=== PATIENT | female | born 1970 | race Caucasian/White ===

== ENCOUNTER 2020-11-21 20:36 | Inpatient (IN) | payer BC, MEDICAID ==
[~2020-11-21] VITALS: Ht 157.5 cm; Wt 54.8 kg
[2020-11-21 21:28] LABS: ALANINE AMINOTRANSFERASE 31 U/L (12-78); ALBUMIN 4.3 g/dL (3.4-5.0); ANION GAP 4 mmol/L (5-15); CALCIUM 8.9 mg/dL (8.5-10.1); CHLORIDE 112 mmol/L (98-107); CREATININE 1.24 mg/dL (0.55-1.02)
[2020-11-21 21:32] LABS: ALKALINE PHOSPHATASE 55 U/L (45-117); BILIRUBIN,TOTAL 0.6 mg/dL (0.2-1.0); TOTAL PROTEIN 7.8 g/dL (6.4-8.2); TROPONIN I < 0.015 ng/mL (0.000-0.045)
[2020-11-21 21:34] LABS: BASOPHILS % (AUTO) 1 % (0-1); EOSINOPHILS % (AUTO) 0 % (1-7); LYMPHOCYTES % (AUTO) 34 % (22-44); MEAN CORPUSCULAR HGB CONC 33.5 g/dL (32.4-35.8); MEAN PLATELET VOLUME 8.9 fL (7.4-10.4); MONOCYTES % (AUTO) 7 % (2-9); NEUTROPHILS % (AUTO) 57 % (42-75); PLATELET COUNT 205 x10^3/uL (130-400); RED BLOOD COUNT 4.51 x10^6/uL (3.82-5.3); RED CELL DISTRIBUTION WIDTH 13.5 % (9.6-15.2)
[2020-11-21] MEDS ORDERED: ASPIRIN 81 MG TABLET CHEW PO ONE (23:00)
[2020-11-21] MEDS ORDERED: LORazepam 1MG TABLET PO ONE (23:00)
[2020-11-21] MEDS ORDERED: LORazepam 2 MG/ML, 1ML ONE (23:06)
[2020-11-21] MEDS ORDERED: ASPIRIN 81 MG TABLET CHEW ONE (23:09)
[2020-11-21] MEDS ORDERED: LORazepam 2 MG/ML, 1ML IVPush ONE ×2 (23:30)
[2020-11-22] MEDS ORDERED: ENOXAPARIN 40 MG/0.4 ML SQ SCH (00:30)
[2020-11-22] MEDS ORDERED: ONDANSETRON 2MG/ML, 2ML IVPush PRN (00:30)
[2020-11-22] MEDS ORDERED: POLYETHYLENE GLYCOL 17 GM PACKET PO PRN (00:30)
[2020-11-22] MEDS ORDERED: ACETAMINOPHEN 650 MG/20.3 ML UDC PO PRN (00:30)
[2020-11-22] MEDS ORDERED: KETOROLAC 30 MG/1 ML IVPush ONE (00:30)
[2020-11-22] MEDS ORDERED: OMNIPAQUE 350 MG/ML, 100ML BOTTLE ONE (00:55)
[2020-11-22 01:05] VITALS: BP 143/86
[2020-11-22 01:29] VITALS: BP 122/64
[2020-11-22 02:00] VITALS: BP 130/82
[2020-11-22] MEDS ORDERED: KETOROLAC 15 MG/1ML IVPush PRN (04:30)
[2020-11-22] MEDS ORDERED: KETOROLAC 30 MG/1 ML IVPush PRN (04:30)
[2020-11-22 05:43] LABS: ALBUMIN 3.6 g/dL (3.4-5.0); ANION GAP 5 mmol/L (5-15); CALCIUM 8.3 mg/dL (8.5-10.1); CHLORIDE 114 mmol/L (98-107)
[2020-11-22 05:51] LABS: ALANINE AMINOTRANSFERASE 27 U/L (12-78); ALKALINE PHOSPHATASE 48 U/L (45-117); BILIRUBIN,TOTAL 0.6 mg/dL (0.2-1.0); CREATININE 1.01 mg/dL (0.55-1.02); TOTAL PROTEIN 6.1 g/dL (6.4-8.2)
[2020-11-22 05:53] LABS: CHOL/HDL RATIO 2.2
[2020-11-22 06:47] LABS: BASOPHILS % (AUTO) 1 % (0-1); EOSINOPHILS % (AUTO) 1 % (1-7); LYMPHOCYTES % (AUTO) 35 % (22-44); MEAN CORPUSCULAR HEMOGLOBIN 31.3 pg (27.0-34.8); MEAN CORPUSCULAR HGB CONC 33.9 g/dL (32.4-35.8); MEAN PLATELET VOLUME 9.5 fL (7.4-10.4); MONOCYTES % (AUTO) 7 % (2-9); NEUTROPHILS % (AUTO) 56 % (42-75); PLATELET COUNT 174 x10^3/uL (130-400); RED BLOOD COUNT 4.14 x10^6/uL (3.82-5.3); RED CELL DISTRIBUTION WIDTH 13.5 % (9.6-15.2)
[2020-11-22] MEDS ORDERED: ASPI-963 PO (07:29)
[2020-11-22] MEDS ORDERED: CHOL10003 PO (07:29)
[2020-11-22] MEDS ORDERED: LISI40TA9 PO (07:29)
[2020-11-22] MEDS ORDERED: METO25TA35 PO (07:29)
[2020-11-22] MEDS ORDERED: TOPI25TA8 PO (07:29)
[2020-11-22] MEDS ORDERED: ASPIRIN 81 MG TABLET CHEW PO/NG SCH (09:00)
[2020-11-22 09:35] VITALS: BP 120/75
[2020-11-22] MEDS ORDERED: SUMA50TA4 PO ×2 (15:07→16:13)
[2020-11-22] MEDS ORDERED: LORazepam 2 MG/ML, 1ML IVPush ONE (21:00)
[2020-11-22] MEDS ORDERED: ATORVASTATIN 40 MG TABLET PO SCH (21:00)
== END 2020-11-22 16:37 | disposition home or self-care (01) | DRG 54 ==
LOC: ED 23:41 → EDIP 11-22 → 4EST 11-22 00:27 → DCLOUNGE 11-22 16:19
PROVIDERS: ADMIT Internal Medicine; ATTEND Internal Medicine
DX: G43.009 Migraine without aura, not intractable, without status migrainosus (principal); F41.8 Other specified anxiety disorders; R63.4 Abnormal weight loss; Z86.73 Personal history of transient ischemic attack (TIA), and cerebral infarction without residual deficits; Z88.5 Allergy status to narcotic agent
CPT/HCPCS: 36415; 70450; 70496; 70498; 70551; 71045; 80053; 80061; 84443; 84484; 85025; 93005; 96374; 96375; J1650; J1885; Q9967; 92523-GN; J2060